=== PATIENT | female | born 1935 | race Caucasian/White ===

== ENCOUNTER → 2017-08-12 | Outpatient (CLI) | payer OTHER ==
--- NOTE | 2017-08-12 14:23 | MRI ---
STUDY: MRI OF THE LUMBAR SPINE HISTORY: Lumbar radiculopathy. Low back pain and right hip pain. Comparison: None. Technique: Multiplanar multi-sequence MRI of the lumbar spine was performed. Sagittal T1, sagittal T 2, and STIR images, axial T1, and axial T2 images were obtained. Findings: Sagittal images: Vertebral body heights and alignment are within normal limits. Marrow signal is age-appropriate. The re is degenerative endplate change identified, with mild Modic type 1 change at the opposing endplate s of L4/5. There is multilevel degenerative disc disease, most severe at L4/5. The conus medullaris is normal in appearance terminating at the level of L1/2. Axial images: T12 -- L1: There is a small perineural cyst in the right neural foramen. The central canal and neural foramina are otherwise adequate. L1 -- L2: There is a shallow disc bulge, bilateral facet arthropathy and ligamentum flavum infolding. The central canal and neural foramina are adequate. L2 -- L3: There is a broad-based disc bulge, bilateral facet arthropathy and ligamentum flavum infold ing. The central canal and neural foramina are adequate. L3 -- L4: Disc there is broad-based disc bulge, bilateral facet arthropathy and ligamentum flavum inf olding. The combination of these findings results in mild central canal stenosis. The neural foramina are adequate. L4 -- L5: There is broad-based disc bulge, bilateral facet arthropathy and ligamentum flavum infoldin g. The combination of these findings results in moderate central canal stenosis. There is mild right and moderate left neural foraminal stenosis at this level. L5 -- S1: There is bilateral facet arthropathy and ligamentum flavum infolding. The central canal and neural foramina are adequate. IMPRESSION: 1. Multilevel lumbar spondylosis, probably most severe at L4/5. 2. Moderate spinal stenosis at L4/5. 3. Mild spinal stenosis at L3/4. 4. Please see above for detail. Reported By:
--- NOTE | 2017-08-12 14:30 | MRI ---
History: Right hip pain. Patient feels a painful 'knot' in her hamstring. Technique: Multiplanar, multi sequence MR imaging of the right hip was performed without IV contrast. Comparison:NONE Findings: Patient status post right hip arthroplasty which results in susceptibility artifact limiting evaluati on of the adjacent osseous and soft tissue structures. There is increased T2 signal within the hamstring tendon origin with adjacent soft tissue edema. Ther e is a partial tear of the semimembranosus tendon at its origin. There is a high-grade partial-thickn ess tear of the chondral and tendinous origin of biceps femoris and semitendinosis. There is edema ex tending distally along the myotendinous junction of the hamstrings. This is best seen on the coronal STIR images. No definite hip effusion is appreciated however its evaluation is limited due to significant distorti on due to susceptibility artifact. The gluteal tendons are difficult to visualize due to artifact. Large [id number] coronal images obtained through both hips demonstrate mild left hip osteoarthrosi s. There is a small left hip effusion. Impression: 1. Status post right hip arthroplasty resulting in susceptibility artifact limiting the examination. 2. High-grade partial-thickness tear of the right hamstring tendon origin as discussed above, with ed gunjan tracking distally consistent with a myotendinous strain. 3. Mild left hip osteoarthrosis and small left hip effusion demonstrated on the large [id number] c oronal images. Consider correlation with dedicated left hip MRI if there is concern for additional le ft hip pathology. Reported By:
== END | disposition home or self-care (01) ==
LOC: RAD 09:23
PROVIDERS: ATTEND Nurse Practitioner Family
DX: M25.551 Pain in right hip (principal); M54.16 Radiculopathy, lumbar region; Z96.641 Presence of right artificial hip joint; M25.452 Effusion, left hip; M47.896 Other spondylosis, lumbar region; M48.061 Spinal stenosis, lumbar region without neurogenic claudication; S76.311A Strain of muscle, fascia and tendon of the posterior muscle group at thigh level, right thigh, initial encounter; X58.XXXA Exposure to other specified factors, initial encounter
CPT/HCPCS: 72148; 73721